=== PATIENT | female | born 1975 | race Two or more races ===

== ENCOUNTER 2016-07-15 21:55 | Emergency (ER) | payer OTHER ==
[2016-07-15] MEDS ORDERED: LETS SOLN TOPICAL 1 EA SYR TP ONE ×2 (22:09→22:24)
[2016-07-15 22:26] VITALS: RESP 16
[2016-07-15] MEDS ORDERED: HYDROmorphONE/DILAUDID 1 MG/ML SYR IVP ONE (22:34)
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
[2016-07-15] MEDS ORDERED: HYDROCOD/APAP 5/325 PREPACK#6 BTL TAKEHOME ONE (23:13)
[2016-07-15 23:25] VITALS: BP 132/68; PULSE 68; TEMP 98.2; O2SAT 96
== END 2016-07-15 23:53 | disposition home or self-care (01) ==
LOC: EDUNIT#
DX: S09.90XA Unspecified injury of head, initial encounter (principal); S83.92XA Sprain of unspecified site of left knee, initial encounter; S13.9XXA Sprain of joints and ligaments of unspecified parts of neck, initial encounter; V49.49XA Driver injured in collision with other motor vehicles in traffic accident, initial encounter; Y92.410 Unspecified street and highway as the place of occurrence of the external cause; Y93.89 Activity, other specified
CPT/HCPCS: 96374; J1170

== ENCOUNTER 2016-08-13 10:47 | Observation (INO) | payer SELFPAY ==
[2016-08-13] MEDS ORDERED: NS 1,000 ML IV ONE ×2 (11:01→13:03)
[2016-08-13] MEDS ORDERED: HYDROmorphONE/DILAUDID 1 MG/ML SYR IVP ONE (11:16)
[2016-08-13] MEDS ORDERED: ONDANSETRON 4 MG/2 ML VIAL IVP ONE (11:16)
[2016-08-13] MEDS ORDERED: KETOROLAC 15 MG/1 ML SDV IVP ONE (11:16)
[2016-08-13 11:28] LABS: COLOR YELLOW; LEUKOCYTE ESTERASE,URINE NEGATIVE (NEGATIVE); NITRITE,URINE NEGATIVE (NEGATIVE)
[2016-08-13 11:35] LABS: % IMMATURE GRANULYOCYTES 0.4 % (0.0-1.1); ABSOLUTE IMMATURE GRANULOCYTES 0.03 10^3/uL (0.00-0.10); ADD DIFF? NO; ADD MORPH? NO; ADD SCAN? NO; ATYPICAL LYMPHOCYTE FLAG 0 (0-99); FRAGMENT RBC FLAG 0 (0-99); HEMATOCRIT 43.8 % (38.0-47.0); LEFT SHIFT FLG 0 (0-99); LIPEMIA HEMOLYSIS FLAG 80 (0-99); MEAN CELL HEMOGLOBIN 26.6 pg (27.9-34.1); MEAN CELL VOLUME 83.1 fL (81.5-99.8); MEAN PLATELET VOLUME 10.3 fL (8.7-11.7); PLATELET CLUMPS FLAG 0 (0-99); PLATELET COUNT 381 10^3/uL (150-400); RED BLOOD CELL COUNT 5.27 10^6/uL (4.18-5.33); RED CELL DISTRIBUTION WIDTH 13.4 % (11.5-15.2)
--- NOTE | 2016-08-13 11:36 | EDPHY ---
H & P Stated Complaint: rlq abd pain/hx of kidney stones/feels the same Time Seen by Provider: 08/13/16 11:35 HPI/ROS: HPI: 40-year-old female presents to emergency department with chief concern right lower quadrant abdominal pain. Onset suddenly this morning awakening her from sleep. Reports 7/10 right lower quadrant pain associated with nausea, as well as 4/10 right flank pain. Reports onset of urinary burning and frequency this morning. Denies fever, chills, URI symptoms, shortness of breath, chest pain, diarrhea. LMP now. History kidney stones 3-times. No alcohol or illicit drug use. 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 - Personal History LMP (Females 10-55): Now Current Tetanus/Diphtheria Vaccine: Unsure - Medical/Surgical History Hx Asthma: No Hx Chronic Respiratory Disease: No Hx Diabetes: No Hx Cardiac Disease: No Hx Renal Disease: No Hx Cirrhosis: No Hx Alcoholism: No Hx HIV/AIDS: No Hx Splenectomy or Spleen Trauma: No Other PMH: kidney stones - Family History Significant Family History: No pertinent family hx - Social History Smoking Status: Never smoked Alcohol Use: Rarely Drug Use: None Additional Social History: - Physical Exam Exam: Vital signs stable, reviewed by me General: Awake, alert, calm, cooperative. No acute distress. Head: Normalocephalic. Atraumatic. EENT: PERRLA. EOMI. No pallor or injection. Anicteric. No nystagmus. No injection. Neck: Supple, nontender. No lymphadenopathy. Full range of motion. No meningismus. Respiratory: Breathing unlabored. Breath sounds equal bilaterally and clear to auscultation. No adventitious sounds. CV: Chest nontender, atraumatic. Heart rate regular. No murmur, distal pulses 2+ bilaterally. Brisk cap refill all extremities. GI: Abdomen soft, right lower quadrant tenderness. No guarding. No rebound. Positive Rovsing. Bowel sounds normoactive and positive x4 quadrants. : Right flank tenderness to percussion Neuro: Alert. Oriented x 3. Speech clear. Nonfocal cranial nerves throughout. Sensation intact all extremities. Skin: Skin warm, dry, intact. No rashes, abrasions, or lacerations. Skin turgor normal. Extremities: Full range of motion in all 4 extremities. Strength 5+ all extremities. Constitutional: Initial Vital Signs Temperature (C) 36.4 C 08/13/16 10:52 Heart Rate 72 08/13/16 10:52 Respiratory Rate 16 08/13/16 10:52 Blood Pressure 113/67 08/13/16 10:52 O2 Sat (%) 97 08/13/16 10:52 O2 Delivery Mode Room Air Allergies/Adverse Reactions: No Known Allergies Allergy (Verified 08/13/16 10:52) Home Medications: Medication Instructions Recorded Hydrocodone/APAP 5/325 [[place] 1 - 2 tab PO Q6H PRN #12 tab 08/13/16 5/325 (*)] Ondansetron Odt [Zofran Odt 4 mg 4 mg PO Q4 PRN #5 tab 08/13/16 (*)] Medical Decision Making - Diagnostics Imaging: CT Scan of the Abdomen and Pelvis (With Contrast) Indication: Right lower quadrant pain. History of kidney stones. Comparison: None. Impression: 1. 7.1 mm calculus at the right ureteropelvic junction with moderate to severe right hydroureter and hydronephrosis. Delayed nephrogram on the right. Bilateral nonobstructive nephrolithiasis. 2. Mild constipation. No evidence for appendicitis. Dictated By: Gavino Carr MD ED Course/Re-evaluation: 1140:40-year-old female presents to emergency department with right lower quadrant tenderness. Has a history of kidney stones 3-4 times. Pain is 7/10 associated with nausea and vomiting. IV started. Normal saline hung. Given 4 mg IV Zofran, 0.5 mg IV Dilaudid, 15 mg IV Toradol. Pain improved to 5/10 presently. White count 7850. Urinalysis shows 2+ blood. No nitrates, no esterase. 50-182 RBCs, 3-5 WBCs, 4+ bacteria. Urine HCG negative. Urine culture pending. CT abdomen pelvis with IV contrast pending. 1230: Given 50 mics of fentanyl. Pain resolved. 1320: Patient has a 7.1 mm stone right UV P with significant hydro. Patient will be admitted to hospitalist service, Dr. Saba. Gerry Gandhi MD consulted. Given 2nd L normal saline, 0.4 mg Flomax. Differential Diagnosis: Flank pain including but not limited to musculoskeletal causes, kidney stone, pyelonephritis, appendicitis shingles, and intra-abdominal causes such as diverticulitis and appendicitis. - Data Points Laboratory Results: Laboratory Results 08/13/16 11:12 08/13/16 11:12 08/13/16 08/13/16 08/13/16 11:12 11:12 11:12 WBC RBC Hgb Hct MCV MCH MCHC RDW Plt Count MPV Neut % (Auto) Lymph % (Auto) [place] % (Auto) Eos % (Auto) Baso % (Auto) Nucleat RBC Rel Count Absolute Neuts (auto) Absolute Lymphs (auto) Absolute Monos (auto) Absolute Eos (auto) Absolute Basos (auto) Absolute Nucleated RBC Immature Gran % Immature Gran # Sodium 141 mEq/L mEq/L (134-144) Potassium 3.9 mEq/L mEq/L (3.5-5.2) Chloride 106 mEq/L mEq/L (97-110) Carbon Dioxide 25 mEq/l mEq/l (22-31) Anion Gap 10 mEq/L mEq/L (8-16) BUN 13 mg/dL mg/dL (7-23) Creatinine 0.8 mg/dL mg/dL (0.6-1.0) Estimated GFR > 60 Glucose 88 mg/dL mg/dL (70-100) Calcium 11.5 mg/dL H mg/dL (8.5-10.4) Phosphorus 2.4 mg/dL L mg/dL (2.5-4.5) Urine Color YELLOW Urine Appearance HAZY Urine pH 5.0 (5.0-7.5) Ur Specific [place] 1.021 (1.002-1.030) Urine Protein NEGATIVE (NEGATIVE) Urine Ketones TRACE H (NEGATIVE) Urine Blood 2+ H (NEGATIVE) Urine Nitrate NEGATIVE (NEGATIVE) Urine Bilirubin NEGATIVE (NEGATIVE) Urine Urobilinogen NEGATIVE EU EU (0.2-1.0) Ur Leukocyte Esterase NEGATIVE (NEGATIVE) Urine RBC 50-182 /hpf H /hpf (0-3) Urine WBC 3-5 /hpf H /hpf (0-3) Ur Epithelial Cells TRACE /lpf /lpf (NONE-1+) Urine Bacteria 4+ /hpf H /hpf (NONE SEEN) Urine Mucus TRACE /lpf /lpf (NONE-1+) Ur Culture Indicated? INDICATED H (NI) Urine Glucose NEGATIVE (NEGATIVE) Urine Test NEGATIVE 08/13/16 11:12 WBC 7.85 10^3/uL 10^3/uL (3.80-9.50) RBC 5.27 10^6/uL 10^6/uL (4.18-5.33) Hgb 14.0 g/dL g/dL (12.6-16.3) Hct 43.8 % % (38.0-47.0) MCV 83.1 fL fL (81.5-99.8) MCH 26.6 pg L pg (27.9-34.1) MCHC 32.0 g/dL L g/dL (32.4-36.7) RDW 13.4 % % (11.5-15.2) Plt Count 381 10^3/uL 10^3/uL (150-400) MPV 10.3 fL fL (8.7-11.7) Neut % (Auto) 67.3 % % (39.3-74.2) Lymph % (Auto) 24.5 % % (15.0-45.0) [place] % (Auto) 6.4 % % (4.5-13.0) Eos % (Auto) 0.9 % % (0.6-7.6) Baso % (Auto) 0.5 % % (0.3-1.7) Nucleat RBC Rel Count 0.0 % % (0.0-0.2) Absolute Neuts (auto) 5.29 10^3/uL 10^3/uL (1.70-6.50) Absolute Lymphs (auto) 1.92 10^3/uL 10^3/uL (1.00-3.00) Absolute Monos (auto) 0.50 10^3/uL 10^3/uL (0.30-0.80) Absolute Eos (auto) 0.07 10^3/uL 10^3/uL (0.03-0.40) Absolute Basos (auto) 0.04 10^3/uL 10^3/uL (0.02-0.10) Absolute Nucleated RBC 0.00 10^3/uL 10^3/uL (0-0.01) Immature Gran % 0.4 % % (0.0-1.1) Immature Gran # 0.03 10^3/uL 10^3/uL (0.00-0.10) Sodium Potassium Chloride Carbon Dioxide Anion Gap BUN Creatinine Estimated GFR Glucose Calcium Phosphorus Urine Color Urine Appearance Urine pH Ur Specific [place] Urine Protein Urine Ketones Urine Blood Urine Nitrate Urine Bilirubin Urine Urobilinogen Ur Leukocyte Esterase Urine RBC Urine WBC Ur Epithelial Cells Urine Bacteria Urine Mucus Ur Culture Indicated? Urine Glucose Urine Test Medications Given: Discontinued Medications Azithromycin (Zithromax) 500 mg PO EDNOW ONE PRN Reason: Protocol Stop: 08/13/16 13:08 Last Admin: 08/13/16 13:14 Dose: Not Given Fentanyl (Sublimaze) 50 mcg IVP EDNOW ONE Stop: 08/13/16 12:07 Last Admin: 08/13/16 12:11 Dose: 50 mcg Hydromorphone HCl (Dilaudid) 0.5 mg IVP EDNOW ONE Stop: 08/13/16 11:17 Last Admin: 08/13/16 11:28 Dose: 0.5 mg Sodium Chloride (Ns) 1,000 mls @ 0 mls/hr IV ONCE ONE PRN Reason: Wide Open Stop: 08/13/16 11:02 Last Admin: 08/13/16 11:14 Dose: 1,000 mls Sodium Chloride (Ns) 1,000 mls @ 0 mls/hr IV ONCE ONE PRN Reason: Wide Open Stop: 08/13/16 13:04 Last Admin: 08/13/16 13:14 Dose: 1,000 mls Ketorolac Tromethamine (Toradol) 15 mg IVP EDNOW ONE Stop: 08/13/16 11:17 Last Admin: 08/13/16 11:28 Dose: 15 mg Ondansetron HCl (Zofran) 4 mg IVP EDNOW ONE Stop: 08/13/16 11:17 Last Admin: 08/13/16 11:28 Dose: 4 mg Tamsulosin HCl (Flomax) 0.4 mg PO EDNOW ONE Stop: 08/13/16 13:04 Last Admin: 08/13/16 13:14 Dose: 0.4 mg Departure - Departure Disposition: [facility] Acute Clinical Impression: Kidney stone Hydronephrosis Qualifiers: Hydronephrosis type: with ureteropelvic junction obstruction Qualified Code(s) : 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
[2016-08-13 11:39] LABS: BACTERIA 4+ /hpf (NONE SEEN); MUCUS TRACE /lpf (NONE-1+); RBC,URINE 50-182 /hpf (0-3)
[2016-08-13 11:42] LABS: ANION GAP 10 mEq/L (8-16); CALCIUM 11.5 mg/dL (8.5-10.4); CARBON DIOXIDE 25 mEq/l (22-31); CHLORIDE 106 mEq/L (97-110); CREATININE 0.8 mg/dL (0.6-1.0); GLOMERULAR FILTRATION RATE > 60; GLUCOSE 88 mg/dL (70-100); POTASSIUM 3.9 mEq/L (3.5-5.2); SODIUM 141 mEq/L (134-144)
[2016-08-13] MEDS ORDERED: IOPAMIDOL (ISOVUE-300) 100 ML BTL IV ONE (11:53)
[2016-08-13] MEDS ORDERED: fentaNYL 100 MCG/2 ML INJ IVP ONE (12:06)
[2016-08-13] MEDS ORDERED: TAMSULOSIN HCL 0.4 MG CAP PO ONE (13:03)
[2016-08-13] MEDS ORDERED: AZITHROMYCIN 250 MG TAB PO ONE (13:07)
[2016-08-13] MEDS ORDERED: ONDANSETRON 4 MG/2 ML VIAL IVP PRN (14:28)
[2016-08-13] MEDS ORDERED: ACETAMINOPHEN 325 MG TAB PO PRN (14:28)
[2016-08-13] MEDS ORDERED: HYDROmorphONE/DILAUDID 1 MG/ML SYR IVP PRN (14:28)
[2016-08-13] MEDS ORDERED: PROMETHAZINE HCL 25 MG/ML INJ IVP PRN (14:28)
[2016-08-13] MEDS ORDERED: oxyCODONE IR 5 MG TAB PO PRN (14:28)
--- NOTE | 2016-08-13 15:09 | GHP ---
[f rep st] HISTORY AND PHYSICAL DATE OF ADMISSION: 08/13/2016 CHIEF COMPLAINT: Flank pain. HISTORY: The patient is a 40-year-old female, who has had right flank pain for the last 2 days. It started mildly yesterday afternoon but got very severe this morning. She has pain in her right fla nk that radiates down to her right lower quadrant. There has been no fever. Mild dysuria. No yamilka turia. Nausea without vomiting. The pain was very severe this morning and is now improved and she is relatively comfortable. PAST MEDICAL HISTORY: Negative. PAST SURGICAL HISTORY: x2. MEDICATIONS: Please see computer record for full detailed list. ALLERGIES: No known drug allergies. SOCIAL HISTORY: No smoking. No alcohol. She lives with her sister and 3 children. REVIEW OF SYSTEMS: A complete review of systems obtained. Review of systems is negative regarding constitutional, HEENT, GI, pulmonary, cardiovascular, , hematology, skin, musculoskeletal, endocri ne, psych, except for positives and negatives as in HPI. FAMILY HISTORY: Her father has a pacemaker. PHYSICAL EXAMINATION: GENERAL: Well-developed, well-nourished female in no acute distress. VITAL SIGNS: Temperature 36.4, pulse 72, blood pressure 113/67, saturating 97% on room air. HEENT: Eye examination: Normal conjunctivae. Pupils equal and reactive to light. ENT: Normal ears and nose. Hearing intact. Normal teeth. Oropharynx moist. NECK: Trachea midline. No thyromegaly. CHEST : Normal effort. LUNGS: Clear to auscultation bilaterally. CARDIOVASCULAR: Regular rhythm. No murmur. No lower extremity edema. ABDOMEN: Soft. Mild right lower quadrant tenderness to palpati on. Right flank tenderness to palpation. No hepatosplenomegaly. SKIN: Warm, dry, intact. No bong h. MUSCULOSKELETAL: No cyanosis or clubbing. Strength 5/5 upper and lower extremities. NEUROLOGI C: Cranial nerves intact. Normal sensation to light touch. PSYCH ASSESSMENT. Alert and oriented x3. Normal mood and affect. Normal judgment and insight. Normal memory. LABORATORY DATA: White count 7.85, hematocrit 43.8, platelets 381. Sodium 141, potassium 3.9, chlo ride 106, bicarb 25, BUN 13, creatinine 0.8, glucose 88, calcium is 11.5. Urinalysis positive for b lood. CT scan shows a 7 mm stone at the right UPJ with severe hydronephrosis. ASSESSMENT/PLAN: 1. 7 mm kidney stone at the right ureteropelvic junction with severe hydronephrosis. She will be h ydrated with IV fluid and given Flomax. This stone is large, however, and I doubt it will pass on i ts own. Urology has been consulted and Dr. Gandhi is aware. I will keep her n.p.o. in anticipation of procedure in the near future. Will continue IV Dilaudid for pain control. 2. Hypercalcemia. I suspect this is due to dehydration. We will hydrate overnight with IV fluids and recheck. 3. Code status is full. ADMISSION STATUS: Will admit to observation. Once the intervention is performed, she can likely be discharged with outpatient followup. DVT PROPHYLAXIS: She is low risk, and with the pending procedure, will hold off on pharmacologic pr ophylaxis at this time. /[id number]/MODL
--- NOTE | 2016-08-13 17:24 | GCON ---
[f rep st] CONSULTATION HISTORY OF PRESENT ILLNESS: I reviewed this lady's chart in detail and talked with Dr. Eagle about her, and basically is a 40-year-old lady who is admitted with right lower abdominal pain, onset was this morning when she was awoke from sleep. She was seen in the emergency room, and it was noted that she had vital signs that were normal, with a temperature of 36.4, respirations of 16, heart rate 72, blood pressure 113/67, and room air oxygen saturation was 97%. She has had a CAT scan of the abdomen and pelvis that showed a 7 mm calculus at the right ureteropelvic junction with moderate to severe hydronephrosis and delayed nephrogram on the right, and then she also has bilateral nonobstructive nephrolithiasis. In the emergency room she was given Zofran, Dilaudid and Toradol, and her pain improved, she is admitted because of the stone. LABORATORY DATA: Her labs showed a serum creatinine of 0.8 and a BUN of 13, calcium of 11.5, and a urinalysis that showed nitrite negative, 50 to 182 red blood cells per high-powered field, occasional white blood cell, and the white blood count was 7.85, and hematocrit 43.8. SOCIAL HISTORY: She is a nonsmoker, rarely drinks alcohol, no drug use. FAMILY HISTORY: She has no family history of significance. PAST MEDICAL HISTORY: She denies respiratory disease, cardiac disease. She has had a history of kidney stones in the past. PE: alert Heart : RRR Lungs: no distress Abdomen: soft Flank: rt pain Neuro: Ox3 MS: normal ROM Const: normal color, hydration and NAD IMPRESSION AND PLAN: After review of her CAT scan and her laboratory values, I have recommended that she undergo having a PTH drawn because of the elevated calcium level, and we will make sure that is ordered. I have asked that she be n.p.o. past midnight, and we will see her and plan ureteroscopy If she has not passed a stone spontaneously consideration of surgical removal via endoscopic technique will be discussed with her. Dr. Eagle appeared to be approving of that plan, and I will see her in the morning. /[id number]/MODL MTDD
[2016-08-13] MEDS: NS 1,000 ML IV SCH (18:45)
[2016-08-13] MEDS ORDERED: FLU VACC QS 2016-17(3-64YR)/PF 0.5 ML SYR (FLUARIX QUAD) IM ONE (22:53)
--- NOTE | 2016-08-14 01:56 | GCON ---
[f rep st] CONSULTATION UROLOGY CONSULTATION DATE OF CONSULTATION: 08/13/2016 REQUESTING PHYSICIAN: Hospitalist service. REASON FOR CONSULTATION: Ureteral stone. HISTORY: This is a 40-year-old essentially non-Maltese speaking female who started experiencing a fairly acute onset of right lower quadrant pain early this morning. The pain was associated with nausea and 1 episode of emesis. She presented to the emergency room as a result. She underwent radiographic imaging, which revealed nephroureterolithiasis, as detailed below. It was decided the patient needed to be admitted because of intractable pain. The patient denies dysuria, gross hematuria, fevers, or flu-like symptoms. She has a prior history of nephrolithiasis on at least 3 or 4 occasions previously, all of which spontaneously resolved without any necessary intervention. All the history is obtained through a hospital zoning assistant. PAST MEDICAL HISTORY: Recurrent nephrolithiasis. Otherwise healthy. PAST SURGICAL HISTORY: Two sections. ADMISSION MEDICATIONS: None. MEDICAL ALLERGIES: None known. FAMILY HISTORY: Not contributory. Specifically, no kidney stones to her knowledge. SOCIAL HISTORY: The patient lives in the [facility]. She denies use of tobacco, nor alcohol products. REVIEW OF SYSTEMS: Unremarkable, other than mentioned above in the HPI. PHYSICAL EXAM: GENERAL: Well-developed, well-nourished, female lying supine in bed, in no acute distress presently. VITAL SIGNS: Blood pressure 116 /71, pulse 76, respiratory rate 20, oxygen saturation 96% on room air, temperature 36.8 Celsius, height 165 cm, weight 959 kg BMI 21.6. HEENT: Normocephalic, atraumatic. NECK: Supple. HEART: Regular rate. CHEST: Unlabored respiratory pattern. ABDOMEN: Soft with mild right lower quadrant tenderness to deep palpation. No peritoneal signs, nor involuntary guarding is appreciated. A Pfannenstiel surgical scar is noted. BACK: Mild to moderate right CVA tenderness on gentle percussion. EXTREMITIES: Warm without cyanosis , clubbing, or edema. VASCULAR: Normal femoral, dorsalis pedis, and posterior tibial pulses bilaterally. NEUROLOGIC: She is alert and oriented. She answers all questions appropriately with normal mood and affect. RADIOGRAPHIC STUDIES: I have obtained an abdominopelvic CT scan today: Upon my review, notable for multiple bilateral renal calculi, right more so than left , including a 6.5 x 5 mm right upper pole, 11 x 5 mm and 7 x 5 mm right lower pole renal calculi. There was moderate right hydronephrosis and hydroureter down to an approximately 7 x 5 x 6 mm long ureteral vesicle junction calculus. LABORATORY: Chemistry panel notable for normal electrolytes. However, calcium is 11.5 and phosphorus is 2.4. Urinalysis notable for 50-182 red blood cells, 3 -5 white blood cells, 4+ bacteria, trace epithelial cells. CBC is unremarkable. IMPRESSION: 1. Symptomatic right distal ureteral calculus. 2. Significant volume bilateral nephrolithiasis, dominant on the right. 3. Hypercalcemia with hypophosphatemia. This is very suggestive for hyperparathyroidism. I had an extended discussion, again through the ballaster, regarding the patient's current symptomatic ureteral calculus. Management options were reviewed. Surgical management would consist of ureteroscopy, if deemed necessary. We discussed the risks associated with this procedure, technical aspects, alternatives, and potential risks/complications (including but not limited to inability to remove existing calculus, inability to find the calculus , urinary tract infection, urinary tract scarring, and possible need for further calculus surgical intervention). All of the patient's questions were answered to her apparent satisfaction today. PLAN: 1. She will be admitted to the hospital service this evening for medical management, which will include IV hydration and continuation of Flomax. 2. Her urine will be strained. 3. If she does not pass the calculus spontaneously, arrangements have been made to proceed with intraoperative ureteroscopy and calculus management tomorrow early afternoon. 4. With the potential for hyperparathyroidism, PTH level and repeat calcium will be obtained with morning laboratory work. I explained to the patient that if she indeed does have hyperparathyroidism, this will need to be surgically treated in order to reduce the risk of future subsequent stone formation. Thank you for this consultation. /[id number]/MODL MTDD
[2016-08-14] MEDS: NS 1,000 ML IV SCH (04:14)
[2016-08-14 04:19] VITALS: O2SAT 95
[2016-08-14 05:06] LABS: % IMMATURE GRANULYOCYTES 0.2 % (0.0-1.1); ABSOLUTE IMMATURE GRANULOCYTES 0.01 10^3/uL (0.00-0.10); ADD DIFF? NO; ADD MORPH? NO; ADD SCAN? NO; ATYPICAL LYMPHOCYTE FLAG 10 (0-99); FRAGMENT RBC FLAG 0 (0-99); HEMATOCRIT 32.2 % (38.0-47.0); HEMOGLOBIN 10.3 g/dL (12.6-16.3); LEFT SHIFT FLG 0 (0-99); LIPEMIA HEMOLYSIS FLAG 80 (0-99); MEAN CELL HEMOGLOBIN 27.1 pg (27.9-34.1); MEAN CELL VOLUME 84.7 fL (81.5-99.8); MEAN PLATELET VOLUME 10.1 fL (8.7-11.7); PLATELET CLUMPS FLAG 10 (0-99); PLATELET COUNT 245 10^3/uL (150-400); RED CELL DISTRIBUTION WIDTH 13.4 % (11.5-15.2)
[2016-08-14 05:21] LABS: ALANINE AMINOTRANSFERASE 28 IU/L (9-52); ALBUMIN 3.1 g/dL (3.5-5.0); ALKALINE PHOSPHATASE 59 IU/L (38-126); ANION GAP 6 mEq/L (8-16); ASPARTATE AMINOTRANSFERASE 18 IU/L (14-46); BILIRUBIN,TOTAL 0.6 mg/dL (0.1-1.4); CALCIUM 9.8 mg/dL (8.5-10.4); CALCIUM 9.8 ng/dL (8.5-10.4); CARBON DIOXIDE 22 mEq/l (22-31); CHLORIDE 112 mEq/L (97-110); CREATININE 0.6 mg/dL (0.6-1.0); GLOMERULAR FILTRATION RATE > 60; GLUCOSE 90 mg/dL (70-100); POTASSIUM 4.1 mEq/L (3.5-5.2); SODIUM 140 mEq/L (134-144); TOTAL PROTEIN 5.8 g/dL (6.3-8.2)
[2016-08-14 05:33] LABS: PTH INTACT NO MINERALS 267.2 pg/ml (10.8-79.4)
[2016-08-14 07:25] VITALS: BP 111/50; PULSE 89; RESP 18; TEMP 98
--- NOTE | 2016-08-14 08:23 | SOAPPROG ---
SOAP Progress Note Assessment/Plan: Assessment: Hydronephrosis Acute will resolve since stone passed spontaneously Hyperparathyroidism Acute Elevated PTH, calcium and low phos. 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 Kidney stone Acute passed and sent for analysis Plan: Cx surgery for stone, DC per hospitalist after addressing PTH issue 08/14/16 08:20 Subjective: passed stone Objective: Vital Signs Temp Pulse Resp BP Pulse Ox 36.7 C 89 18 111/50 L 95 08/14/16 07:22 08/14/16 07:22 08/14/16 07:22 08/14/16 07:22 08/14/16 07:22 Laboratory Results 08/14/16 04:52 08/14/16 04:52 08/13/16 08/14/16 08/15/16 05:59 05:59 05:59 Intake Total 3001 Output Total 950 Balance 2051 Physical Exam - Physical Exam General Appearance: alert ICD10 Worksheet Patient Problems: Problems Problem Status Onset Hydronephrosis Acute Hyperparathyroidism Acute Kidney stone Acute
[2016-08-14] MEDS ORDERED: TAMSULOSIN HCL 0.4 MG CAP PO SCH (09:00)
[2016-08-14] MEDS ORDERED: levOFLOXACIN 500 MG/DEXTROSE 100 ML IV ONE (12:00)
--- NOTE | 2016-08-14 13:03 | GDS ---
[f rep st] DISCHARGE SUMMARY DISCHARGE DIAGNOSES: 1. A 7 mm kidney stone. 2. Hypercalcemia. CONSULTATIONS: Dr. Martin of Urology. STUDIES AND PROCEDURES DONE: CT of the abdomen, noting a 7.1 mm stone. PHYSICAL EXAM: GENERAL: The patient is alert and oriented, in no acute distress. VITAL SIGNS: Af ebrile 36.7, pulse is 89, respiratory rate is 18, blood pressure is 111/50, she is saturating 95% on room air. I have seen and evaluated the patient on the day of discharge. HOSPITAL COURSE: Ms. Pappas is a 40-year-old female, who presents to the emergency room with compla ints of flank pain. She was evaluated and diagnosed with a 7 mm stone in the right UPJ with severe hydronephrosis. During this hospitalization, she was treated with supportive management including F ellis and IV fluids. Her stone has passed and has been sent to the laboratory for further evaluatio n and diagnostics. During this hospital course, she was also noted to be hypercalcemic. This resol adelaida with fluid resuscitation and hydration; however, her PTH intact remains elevated significantly a t 267. 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 I have instructed her to follow up in the outpatient setting with her primary care physician for furt her evaluation and management of her potential hyperparathyroidism. She is in agreement with this p louisa and does understand the significance of it. There are no other pending studies. DISCHARGE MEDICATIONS: Please refer to EMR form. I have not provided the patient any medications a t the time of disposition. She is not having any pain. She is tolerating a regular diet. Again, s he will follow up in the outpatient setting in the next 1-2 days with her primary care physician, as well as Urology as needed. /[id number]/MODL
== END 2016-08-14 11:22 | disposition home or self-care (01) ==
LOC: F3E 17:32
PROVIDERS: ADMIT Internal Medicine; ATTEND Internal Medicine
DX: N13.2 Hydronephrosis with renal and ureteral calculous obstruction (principal); E21.3 Hyperparathyroidism, unspecified; K59.00 Constipation, unspecified; Z87.442 Personal history of urinary calculi
CPT/HCPCS: 82365-90; 96374; G0008; G0378; J1170; J1885; J2405; J3010; Q9967